=== PATIENT | male | born 1975 | race African-American/Black ===

== ENCOUNTER 2017-10-06 16:59 | Emergency (ER) | payer SELFPAY ==
[~2017-10-06] VITALS: Ht 182.9 cm; Wt 114.0 kg
[~2017-10-06 16:59] MED LIST: IBUP400T20 PO
[2017-10-06 17:01] VITALS: BP 169/99; PULSE 91; RESP 22; TEMP 98.8; O2SAT 98
[2017-10-06 18:05] LABS: AUTOMATED NEUTROPHIL # 5.2 TH/MM3 (1.8-7.7); BASOPHIL # 0.1 TH/MM3 (0-0.2); EOSINOPHIL # 0.1 TH/MM3 (0-0.4); EOSINOPHIL % 0.7 % (0.0-4.0); HEMATOCRIT 41.2 % (39.0-51.0); HEMOGLOBIN 13.7 GM/DL (13.0-17.0); LYMPH % 41.5 % (9.0-44.0); LYMPHOCYTE # 4.2 TH/MM3 (1.0-4.8); MEAN CELL VOLUME 74.8 FL (80.0-100.0); MEAN CORPUSCULAR HEMOGLOBIN 24.9 PG (27.0-34.0); MEAN CORPUSCULAR HGB CONC 33.2 % (32.0-36.0); MEAN PLATELET VOLUME 8.1 FL (7.0-11.0); MONO % 5.6 % (0.0-8.0); MONOCYTE # 0.6 TH/MM3 (0-0.9); NEUT % 51.2 % (16.0-70.0); PLATELET COUNT 359 TH/MM3 (150-450); RED BLOOD COUNT 5.51 MIL/MM3 (4.50-5.90); RED CELL DISTRIBUTION WIDTH 18.2 % (11.6-17.2); WHITE BLOOD COUNT 10.2 TH/MM3 (4.0-11.0)
[2017-10-06 18:28] LABS: CALCIUM 9.5 MG/DL (8.5-10.1); CREATININE 1.14 MG/DL (0.60-1.30)
[2017-10-06 19:17] VITALS: BP 174/105; PULSE 80; RESP 16; O2SAT 96
[2017-10-06] MEDS ORDERED: ROBA750T PO (19:30)
[2017-10-06] MEDS ORDERED: IBUP1TAB7 PO (19:30)
--- NOTE | 2017-10-06 19:30 | PD ---
HPI Chief Complaint: Edema Time Seen by Provider: 19:19 Travel History International Travel<30 days: No Contact w/Intl Traveler<30days: No Traveled to known affect area: No History of Present Illness HPI 42-year-old male presents to emergency department for evaluation of bilateral lower extremity edema that he noticed earlier this week. He denies any chest pain or tightness. No difficulty breathing. States that he is on his feet a lot. He also reports eating a lot of salt in his diet. Patient would also like some pain control for his chronic left lower back pain. He states every once a while it flares up and it is currently flaring up. He rates the pain a 6 out of 10, constant aching with sharp intermittent stabbing pains into his left hip and buttock. Denies any new injury. No recent illnesses, fever, or chills. He has no other symptoms to report. [facility] Past Medical History Medical History: Denies Significant Hx Tetanus Vaccination: Unknown Influenza Vaccination: No Past Surgical History Surgical History: No Previous Surgery Social History Alcohol Use: Yes (occ) Tobacco Use: Yes Substance Use: No Allergies-Medications (Allergen,Severity, Reaction): Coded Allergies: No Known Allergies (Unverified , 08/17/12) Reported Meds & Prescriptions Reported Meds & Active Scripts Active Robaxin (Methocarbamol) 750 Mg Tab 750 Mg PO QID PRN Ibuprofen 800 Mg Tab 800 Mg PO Q8H PRN Review of Systems Except as stated in HPI: all other systems reviewed are Neg Physical Exam Narrative GENERAL: Well-nourished male patient, ambulatory and in no acute distress. SKIN: Focused skin assessment warm/dry. HEAD: Atraumatic. Normocephalic. EYES: Pupils equal and round. No scleral icterus. No injection or drainage. ENT: No nasal bleeding or discharge. Mucous membranes pink and moist. NECK: Trachea midline. No JVD. CARDIOVASCULAR: Regular rate and rhythm. No murmur appreciated. RESPIRATORY: No accessory muscle use. Clear to auscultation. Breath sounds equal bilaterally. GASTROINTESTINAL: Abdomen soft, non-tender, nondistended. Hepatic and splenic margins not palpable. MUSCULOSKELETAL: No obvious deformities. No clubbing. No cyanosis. Trace, nonpitting edema bilateral lower extremity. Distal pulses are palpable. Cap refill is within normal limits. No midline spinal tenderness. NEUROLOGICAL: Awake and alert. No obvious cranial nerve deficits. Motor grossly within normal limits. Normal speech. PSYCHIATRIC: Appropriate mood and affect; insight and judgment normal. Data Data Last Documented VS Vital Signs Date Time Temp Pulse Resp B/P (MAP) Pulse Ox O2 Delivery O2 Flow Rate FiO2 10/06/17 19:37 10/06/17 19:17 80 16 96 Room Air 10/06/17 17:01 98.8 Orders Orders Complete Blood Count With Diff (10/06/17 17:24) Basic Metabolic Panel (Bmp) (10/06/17 17:24) Ed Discharge Order (10/06/17 19:23) Labs Laboratory Tests Test 10/06/17 17:34 White Blood Count 10.2 TH/MM3 Red Blood Count 5.51 MIL/MM3 Hemoglobin 13.7 GM/DL Hematocrit 41.2 % Mean Corpuscular Volume 74.8 FL Mean Corpuscular Hemoglobin 24.9 PG Mean Corpuscular Hemoglobin Concent 33.2 % Red Cell Distribution Width 18.2 % Platelet Count 359 TH/MM3 Mean Platelet Volume 8.1 FL Neutrophils (%) (Auto) 51.2 % Lymphocytes (%) (Auto) 41.5 % Monocytes (%) (Auto) 5.6 % Eosinophils (%) (Auto) 0.7 % Basophils (%) (Auto) 1.0 % Neutrophils # (Auto) 5.2 TH/MM3 Lymphocytes # (Auto) 4.2 TH/MM3 Monocytes # (Auto) 0.6 TH/MM3 Eosinophils # (Auto) 0.1 TH/MM3 Basophils # (Auto) 0.1 TH/MM3 CBC Comment DIFF FINAL Differential Comment Blood Urea Nitrogen 10 MG/DL Creatinine 1.14 MG/DL Random Glucose 108 MG/DL Calcium Level 9.5 MG/DL Sodium Level 141 MEQ/L Potassium Level 3.9 MEQ/L Chloride Level 108 MEQ/L Carbon Dioxide Level 26.0 MEQ/L Anion Gap 7 MEQ/L Estimat Glomerular Filtration Rate 86 ML/MIN MDM Medical Decision Making Medical Screen Exam Complete: Yes Emergency Medical Condition: Yes Medical Record Reviewed: Yes Differential Diagnosis Dependent edema versus CHF versus DVT versus PVD Narrative Course 42-year-old male presents to the emergency department for evaluation. Patient appears without distress. He has trace bilateral lower extremity ankle edema. This is nonpitting. The extremities are neurovascularly intact. I am not concerned at this time for a DVT. The patient has no complaints of shortness of breath. I have counseled the patient on a low-sodium low-salt diet and encouraged elevation after work. I offer nonnarcotic pain control here and patient declines. I have also offered to prescribe him nonnarcotic pain control despite his request for Lortabs to take care of his chronic back pain. He is willing to attempt these medications. I have discussed the patient with my attending. Patient will be discharged at this time. Diagnosis Primary Impression: Edema of both ankles Additional Impressions: Chronic back pain Qualified Codes: M54.42 - Lumbago with sciatica, left side; G89.29 - Other chronic pain Hypertension Qualified Codes: I10 - Essential (primary) hypertension Referrals: Primary Care Physician Patient Instructions: General Instructions, Hypertension (GEN), Leg Edema (ED) Additional Instructions: Follow-up with a primary care provider Avoid salts and eat a low-sodium diet Elevate lower extremity to reduce swelling Return immediately to the emergency department with any acute worsening symptoms Med/Other Pt SpecificInfo: Prescription(s) given Scripts Methocarbamol (Robaxin) 750 Mg Tab 750 MG PO QID Y for MUSCLE SPASM, #20 TAB 0 Refills Prov: Roma Simpson 10/06/17 Ibuprofen (Ibuprofen) 800 Mg Tab 800 MG PO Q8H Y for PAIN SCALE 1 TO 10, #30 TAB 0 Refills Prov: Roma Simpson 10/06/17 Disposition: 01 DISCHARGE HOME Condition: Stable Roma Simpson Oct 06, 2017 19:30
== END 2017-10-06 19:37 | disposition home or self-care (01) ==
LOC: NEPE 16:59
DX: R60.0 Localized edema (principal); M54.42 Lumbago with sciatica, left side; G89.29 Other chronic pain; I10 Essential (primary) hypertension; Z72.0 Tobacco use
CPT/HCPCS: 80048; 85025; 99283